=== PATIENT | female | born 1990 | race African-American/Black ===

== ENCOUNTER 2018-07-01 09:24 | Inpatient (IN) | payer OTHER, MEDICAID ==
[~2018-07-01] VITALS: Ht 162.6 cm; Wt 80.3 kg
[2018-07-01] MEDS ORDERED: LACTATED RINGERS 1,000 ML IV SCH (10:00)
[2018-07-01] MEDS ORDERED: NALOXONE HCL 0.4 MG/ML 1ML VIAL IM PRN (10:00)
[2018-07-01] MEDS ORDERED: BUTORPHANOL TARTRATE 2 MG/ML VIAL IV PRN (10:00)
[2018-07-01] MEDS ORDERED: PENICILLIN G POTASSIUM 5 MMU in DEXT 5% WATER 100 ML IV SCH (10:00)
[2018-07-01] MEDS ORDERED: METHYLERGONOVINE MALEATE 0.2 MG/ML IM PRN (10:00)
[2018-07-01] MEDS ORDERED: LIDOCAINE HCL 1% 20ML VIAL (Pyxis) INJ INFIL SCH (10:00)
[2018-07-01] MEDS ORDERED: DEXT 5%/LR + PITOCIN 20UNITS/L 1,000 ML IV SCH ×2 (10:00→12:00)
[2018-07-01 11:10] LABS: BASOPHILS % 0.1 % (0.0-2.0); EOSINOPHILS % 0.2 % (0.0-5.0); HEMATOCRIT. 36.5 % (36.0-48.0); LYMPHOCYTES % 25.9 % (20.0-50.0); MEAN CORPUSCULAR HEMOGLOBIN 30.4 pg (28.0-32.0); MEAN CORPUSCULAR VOLUME 92.1 fL (81.0-99.0); MEAN PLATELET VOLUME 10.4 fl (7.4-10.4); MONOCYTES % 6.5 % (2.0-8.0); NEUTROPHILS % 67.3 % (40.0-76.0); PLATELET 188 x1000/uL (130-400); RED BLOOD CELL COUNT 3.96 mill/uL (4.2-5.4); RED CELL DISTRIBUTION WIDTH 14.5 % (11.6-14.6)
[2018-07-01 11:13] LABS: CLARITY URINE CLEAR (CLEAR); COLOR URINE YELLOW (YELLOW); KETONES URINE NEGATIVE (NEGATIVE); LEUKOCYTE ESTERASE URINE NEGATIVE (NEGATIVE); NITRITE URINE NEGATIVE (NEGATIVE); OCCULT BLOOD URINE TRACE (NEGATIVE); PROTEIN URINE NEGATIVE (NEGATIVE); UROBILINOGEN URINE 0.2 E.U./dL (0.2-1.0)
[2018-07-01] MEDS ORDERED: BISACODYL 10MG SUPP PR PRN (11:45)
[2018-07-01] MEDS ORDERED: GLYCERIN/WITCH HAZEL LEAF MEDICATED PAD TOP PRN (11:45)
[2018-07-01] MEDS ORDERED: IBUPROFEN 400MG TABLET PO PRN (11:45)
[2018-07-01] MEDS ORDERED: LANOLIN OINT 0.25 GM TUBE TOP PRN (11:45)
[2018-07-01 11:51] LABS: *AMPHETAMINES SCREEN URINE NEGATIVE (NEGATIVE); *BARBITURATES SCREEN URINE NEGATIVE (NEGATIVE); *BENZODIAZEPINES SCREEN URINE NEGATIVE (NEGATIVE); *COCAINE SCREEN URINE NEGATIVE (NEGATIVE)
[2018-07-01 11:52] LABS: METHADONE URINE SCREEN NEGATIVE (NEGATIVE); OPIATES URINE SCREEN NEGATIVE (NEGATIVE); PHENCYCLIDINE URINE SCREEN NEGATIVE (NEGATIVE)
[2018-07-01 11:53] LABS: CANNABINOID URINE SCREEN NEGATIVE (NEGATIVE)
[2018-07-01 12:03] LABS: HEPATITIS B SURFACE ANTIGEN NEGATIVE
[2018-07-01] MEDS: ACETAMINOPHEN WITH CODEINE 300/30MG TABLET PO PRN ×3 (12:07→16:56)
[2018-07-01] MEDS ORDERED: PENICILLIN G POTASSIUM 2.5 MMU in DEXTROSE 5% WATER 50 ML IV SCH (14:00)
[2018-07-01 14:30] VITALS: BP 110/77
[2018-07-01 15:00] VITALS: BP 137/77
[2018-07-01 16:00] VITALS: BP 126/74
[2018-07-01] MEDS: DOCUSATE SODIUM 100MG CAPSULE PO SCH (20:38)
[2018-07-01] MEDS: MAGNESIUM/ALUMINUM HYDROXIDE/SIMETHICONE 30ML UDC PO SCH (20:39)
[2018-07-01] MEDS: SIMETHICONE 80MG TABLET CHEW PO SCH (20:39)
[2018-07-01 22:00] VITALS: BP 133/78
[2018-07-02] MEDS: ACETAMINOPHEN WITH CODEINE 300/30MG TABLET PO PRN ×3 (01:03→20:30)
[2018-07-02 04:15] VITALS: BP 125/50
[2018-07-02 07:30] LABS: BASOPHILS % 0.3 % (0.0-2.0); EOSINOPHILS % 0.8 % (0.0-5.0); HEMOGLOBIN. 11.7 g/dL (12.0-16.0); LYMPHOCYTES % 26.7 % (20.0-50.0); MEAN CORPUSCULAR VOLUME 92.4 fL (81.0-99.0); MEAN PLATELET VOLUME 10.9 fl (7.4-10.4); NEUTROPHILS % 65.2 % (40.0-76.0); PLATELET 171 x1000/uL (130-400); RED CELL DISTRIBUTION WIDTH 14.3 % (11.6-14.6)
[2018-07-02] MEDS: PRENATAL VIT/FE FUMARATE/FA TABLET PO SCH (08:16)
[2018-07-02] MEDS: MAGNESIUM/ALUMINUM HYDROXIDE/SIMETHICONE 30ML UDC PO SCH ×4 (08:16→20:31)
[2018-07-02] MEDS: SIMETHICONE 80MG TABLET CHEW PO SCH ×4 (08:16→20:29)
[2018-07-02 08:31] VITALS: BP 114/82
[2018-07-02 16:22] VITALS: BP 129/79
[2018-07-02] MEDS: DOCUSATE SODIUM 100MG CAPSULE PO SCH (20:30)
[2018-07-03 08:00] VITALS: BP 124/84
[2018-07-03] MEDS: PRENATAL VIT/FE FUMARATE/FA TABLET PO SCH (09:14)
[2018-07-03] MEDS: ACETAMINOPHEN WITH CODEINE 300/30MG TABLET PO PRN (09:14)
== END 2018-07-03 10:50 | disposition home or self-care (01) | DRG 560 ==
LOC: 8 EST LDRP 09:24 → OBSVTOIN 09:24 → 8EST 14:30
PROVIDERS: ADMIT Obstetrics & Gynecology; ATTEND Obstetrics & Gynecology
PROC: 10E0XZZ Delivery of Products of Conception, External Approach (ICD-10-PCS; principal; 2018-07-01)
DX: O69.81X0 Labor and delivery complicated by cord around neck, without compression, not applicable or unspecified (principal); D64.9 Anemia, unspecified; O99.02 Anemia complicating childbirth; Z37.0 Single live birth; Z3A.39 39 weeks gestation of pregnancy
CPT/HCPCS: 36415; 80305; 86592; 86703; 86762; 86850; 86900; 87340; 99281; J2540; J2590; J7060